=== PATIENT | male | born 1975 | race Caucasian/White ===

== ENCOUNTER 2023-06-09 17:57 | Emergency (ER) | payer SELFPAY ==
[2023-06-09 18:08] VITALS: BP 131/86; PULSE 91; RESP 18; TEMP 98.3; BMI 30.9
[2023-06-09] MEDS ORDERED: ACETAMINOPHEN 1000 MG/100 ML BAG IVPB ONE (19:27)
[2023-06-09] MEDS ORDERED: ACETAMINOPHEN INJECTION 100 ML IVPB ONE (19:48)
[2023-06-09] MEDS ORDERED: LIDOCAINE 5% TOPICAL PATCH TP ONE (20:35)
[2023-06-09] MEDS ORDERED: LIDOCAINE 4% PATCH TP ONE (20:39)
[2023-06-09 20:46] LABS: BASO % 0.6 % (0-2.0); EOS % 3.3 % (0-4.5); HEMOGLOBIN 14.2 GM/dL (11.7-16.9); LYMPH % 21.1 % (8-40); MEAN CELL VOLUME 93.9 fl (80-96); MEAN PLT VOLUME 6.4 fl (7.5-11.1); MONO % 13.4 % (3.8-10.2); NEUT % 61.6 % (42.8-82.8); PLATELET COUNT 287 10^3/uL (134-434); RBC 4.58 M/mm3 (4.00-5.60); RDW 13.2 % (11.9-15.9); WHITE BLOOD COUNT 7.1 K/mm3 (4.0-10.0)
[2023-06-09 21:03] LABS: POTASSIUM 4.4 mmol/L (3.5-5.1)
[2023-06-09 21:05] LABS: CALCIUM 8.6 mg/dL (8.5-10.1)
[2023-06-09 21:06] LABS: ALBUMIN 3.2 g/dl (3.4-5.0); BLOOD UREA NITROGEN 10.7 mg/dL (7-18)
[2023-06-09 21:09] LABS: CREATININE 0.9 mg/dL (0.55-1.3)
[2023-06-09 21:10] LABS: BILIRUBIN,TOTAL 0.4 mg/dL (0.2-1); TOT PROT 6.6 g/dl (6.4-8.2)
[2023-06-09] MEDS ORDERED: KETOROLAC TROMETHAMINE 15 MG/ML VIAL IVPUSH ONE (21:33)
[2023-06-09] MEDS ORDERED: KETOROLAC TROMETHAMINE 15 MG/ML VIAL ONE (21:43)
[2023-06-09] MEDS ORDERED: LIDOCAINE PATCH REMOVAL MC ONE (22:00)
== END 2023-06-09 22:02 | disposition home or self-care (01) ==
LOC: JER 17:57
PROC: 3E033NZ Introduction of Analgesics, Hypnotics, Sedatives into Peripheral Vein, Percutaneous Approach (ICD-10-PCS; principal; 2023-06-09)
PROC: 3E0333Z Introduction of Anti-inflammatory into Peripheral Vein, Percutaneous Approach (ICD-10-PCS; 2023-06-09)
DX: R07.9 Chest pain, unspecified (principal); Z20.822 Contact with and (suspected) exposure to COVID-19
CPT/HCPCS: 0241U-QW; 36415; 71046-TC-FY; 80053; 84484; 85025; 85379; 93005; 93010; 99285-25